=== PATIENT | female | born 1935 | race Caucasian/White ===

== ENCOUNTER 2016-11-22 12:18 | Inpatient (IN) | payer OTHER ==
[~2016-11-22] VITALS: Ht 154.9 cm; Wt 70.2 kg
[~2016-11-22 12:18] MED LIST: ASPI81CH43; METF-370
[2016-11-22] MEDS ORDERED: SODIUM CHLORIDE 0.9% 1,000 ML IVB ONE (12:53)
[2016-11-22 13:27] LABS: Basophils # (auto) 0 uL; Basophils % (auto) 0.3 % (0.0-2.0); CONDITION Y; Eosinophils # (auto) 0.4 uL; Eosinophils % (auto) 5.9 % (0.0-7.0); Hemoglobin 11.8 g/dL (12.2-16.2); Lymphocytes # (auto) 1.8 uL; Lymphocytes % (auto) 23.6 % (10.0-50.0); Mean Corpuscular Hemoglobin 29.6 pg (28.0-32.0); Mean Corpuscular Hgb Conc. 32.9 g/dL (32.0-36.0); Mean Corpuscular Volume 90.2 fL (80.0-100.0); Mean Platelet Volume 7.9 fL (7.4-10.4); Monocytes # (auto) 0.5 uL; Monocytes % (auto) 6.4 % (0.0-12.0); Neutrophils # (auto) 4.8 uL; Neutrophils % (auto) 63.8 % (37.0-80.0); Platelet Count (auto) 317 10^3/uL (140-450); Red Cell Distribution Width 15.1 % (11.6-16.0); White Blood Cell 7.5 10^3/uL (4.4-10.8)
[2016-11-22 13:51] LABS: Albumin 3.9 g/dL (3.4-5.0); Anion Gap 11 (5-15); Aspartate Aminotransferase 19 U/L (15-37); BUN/Creatinine Ratio 31.6; Blood Urea Nitrogen 43 mg/dL (7-18); Carbon Dioxide 18 mmol/L (21-32); Chloride 111 mmol/L (98-107); GFR African American 48 mL/min; GFR Non-African American 39 mL/min; Glucose 140 mg/dL (74-106); Potassium 4.9 mmol/L (3.5-5.1); Sodium 140 mmol/L (136-145)
[2016-11-22 13:55] LABS: Alkaline Phosphatase 99 U/L (45-117); Bilirubin, Total 0.3 mg/dL (0.2-1.0); Total Protein 7.7 g/dL (6.4-8.2)
[2016-11-22 14:00] LABS: Magnesium 2.4 mg/dL (1.6-2.6)
[2016-11-22 14:23] LABS: INR 1.02 (0.9-1.15); Partial Thromboplastin Time 26.5 sec (22.64-33.71); Prothrombin Time 11.1 sec (9.37-12.3)
[2016-11-22] MEDS ORDERED: ENOXAPARIN SOD 80 MG/0.8ML SYRINGE SC ONE (14:45)
[2016-11-22] MEDS ORDERED: TRAZ100T2 PO (16:01)
[2016-11-22] MEDS ORDERED: GABA-494 PO (16:01)
[2016-11-22] MEDS ORDERED: SIMV10TA84 PO (16:01)
[2016-11-22] MEDS ORDERED: LISI-646 PO (16:01)
[2016-11-22] MEDS ORDERED: MONT10TA34 PO (16:05)
[2016-11-22] MEDS ORDERED: MIRT15TA3 PO (16:05)
[2016-11-22] MEDS ORDERED: LEVOFLOXACIN 250MG 50 ML IV ONE (16:15)
[2016-11-22] MEDS ORDERED: ONDANSETRON HCL 4 MG/2 ML VIAL IV PRN (16:15)
[2016-11-22] MEDS ORDERED: ACETAMINOPHEN 325 MG TAB PO PRN (16:15)
[2016-11-22] MEDS ORDERED: DEXTROSE (50%) 50ML SYRG IV PRN (16:15)
[2016-11-22] MEDS ORDERED: DOCUSATE SOD 100 MG CAP PO PRN (16:15)
[2016-11-22] MEDS ORDERED: NITROGLYCERIN 0.4 MG SL TAB SL PRN (16:15)
[2016-11-22] MEDS ORDERED: ACETAMINOPHEN/CODEINE#3 (300/30mg) TAB PO PRN (16:15)
[2016-11-22] MEDS ORDERED: TEMAZEPAM 15 MG CAP PO PRN (16:15)
[2016-11-22] MEDS ORDERED: MORPHINE SULF INJ 2 MG/ML SYRINGE 1ML IV PRN ×2 (16:15)
[2016-11-22] MEDS ORDERED: GABAPENTIN 100 MG CAP PO ONE (16:30)
[2016-11-22] MEDS ORDERED: MULTIPLE VITAMIN TAB PO ONE (16:30)
[2016-11-22] MEDS ORDERED: ASPirin-EC 81 mg tab PO ONE (16:30)
[2016-11-22] MEDS ORDERED: MONTELUKAST SODIUM 10 MG TAB PO ONE (16:30)
[2016-11-22] MEDS ORDERED: LISINOPRIL 20 MG TAB PO ONE (16:30)
[2016-11-22] MEDS ORDERED: FAMOTIDINE 20 MG TAB PO ONE (16:30)
[2016-11-22] MEDS: InsuLIN REG 1unit/0.01ml Soln (100units/ml) SC SCH ×2 (17:00→22:00)
[2016-11-22] MEDS: ACCU-CHEK COMFORT CURVE STRIP VI SCH ×2 (17:03→22:58)
[2016-11-22 17:19] LABS: Temperature: 24.8 C (20.0-25.0)
[2016-11-22] MEDS: ALBUTEROL SULF 2.5 MG/0.5ML(0.5%) NEB SOLN NEB SCH (18:00)
[2016-11-22] MEDS: IPRATROPIUM BROM 0.5 MG/2.5ML INH SOL NEB SCH (18:00)
[2016-11-22] MEDS: traZODone HCL 50 MG TAB PO SCH (18:39)
[2016-11-22] MEDS: ISOSORBIDE DINITRATE 10 MG TAB PO SCH (18:39)
[2016-11-22 18:58] VITALS: BP 135/44
[2016-11-22 19:33] LABS: Urine Bilirubin Negative (Negative); Urine Blood Negative /uL (Negative); Urine Color Yellow (Yellow); Urine Glucose Normal (Normal); Urine Ketone Negative (Negative); Urine Nitrite Negative (Negative); Urine RBC <1 /hpf (0 - 4); Urine Urobilinogen Normal (Negative)
[2016-11-22] MEDS ORDERED: PATIENTS OWN MEDICATION IN SCH ×2 (22:00)
[2016-11-22] MEDS ORDERED: FAMOTIDINE 20 MG TAB PO SCH (22:00)
[2016-11-22] MEDS ORDERED: ADVAIR IN SCH (22:00)
[2016-11-22] MEDS: SODIUM CHLOR 0.9% PF (SALINE LOCK) 10ML VIAL IV SCH (22:56)
[2016-11-22] MEDS: ATORVASTATIN 20 MG TAB PO SCH (22:57)
[2016-11-22] MEDS: GABAPENTIN 100 MG CAP PO SCH (22:57)
[2016-11-22] MEDS: MIRTAZAPINE 30 MG TAB PO SCH (22:57)
[2016-11-22 23:17] VITALS: BP 147/64
[2016-11-23] VITALS (7 sets, daily range): BP systolic 107–153; BP diastolic 46–84
[2016-11-23] MEDS: IPRATROPIUM BROM 0.5 MG/2.5ML INH SOL NEB SCH ×4 (00:30→19:19)
[2016-11-23] MEDS: ALBUTEROL SULF 2.5 MG/0.5ML(0.5%) NEB SOLN NEB SCH ×4 (00:30→19:20)
[2016-11-23] MEDS: ISOSORBIDE DINITRATE 10 MG TAB PO SCH ×3 (05:37→18:49)
[2016-11-23] MEDS: SODIUM CHLOR 0.9% PF (SALINE LOCK) 10ML VIAL IV SCH ×3 (05:37→22:30)
[2016-11-23] MEDS: InsuLIN REG 1unit/0.01ml Soln (100units/ml) SC SCH ×4 (05:38→22:31)
[2016-11-23] MEDS: ACCU-CHEK COMFORT CURVE STRIP VI SCH ×4 (05:40→22:32)
[2016-11-23 06:41] LABS: Basophils # (auto) 0 uL; Basophils % (auto) 0.5 % (0.0-2.0); CONDITION Y; Eosinophils # (auto) 0.5 uL; Eosinophils % (auto) 7.7 % (0.0-7.0); Hematocrit 33.5 % (36.0-46.0); Hemoglobin 10.9 g/dL (12.2-16.2); Lymphocytes # (auto) 2.4 uL; Lymphocytes % (auto) 33.2 % (10.0-50.0); Mean Corpuscular Hemoglobin 29.8 pg (28.0-32.0); Mean Corpuscular Hgb Conc. 32.7 g/dL (32.0-36.0); Mean Corpuscular Volume 91.2 fL (80.0-100.0); Mean Platelet Volume 7.7 fL (7.4-10.4); Monocytes # (auto) 0.5 uL; Monocytes % (auto) 7.3 % (0.0-12.0); Neutrophils # (auto) 3.6 uL; Neutrophils % (auto) 51.3 % (37.0-80.0); Platelet Count (auto) 266 10^3/uL (140-450); Red Cell Distribution Width 14.7 % (11.6-16.0); White Blood Cell 7.1 10^3/uL (4.4-10.8)
[2016-11-23 07:06] LABS: Albumin 3.3 g/dL (3.4-5.0); Calcium 8.6 mg/dL (8.5-10.1); Potassium 5.1 mmol/L (3.5-5.1)
[2016-11-23 07:10] LABS: Bilirubin, Total 0.3 mg/dL (0.2-1.0); Total Protein 6.7 g/dL (6.4-8.2)
[2016-11-23] MEDS: traZODone HCL 50 MG TAB PO SCH ×2 (08:19→18:47)
[2016-11-23] MEDS: FAMOTIDINE 20 MG TAB PO SCH (10:41)
[2016-11-23] MEDS: MULTIPLE VITAMIN TAB PO SCH (10:41)
[2016-11-23] MEDS: GABAPENTIN 100 MG CAP PO SCH ×2 (10:41→22:31)
[2016-11-23] MEDS: ASPirin-EC 81 mg tab PO SCH (10:42)
[2016-11-23] MEDS: MONTELUKAST SODIUM 10 MG TAB PO SCH (10:42)
[2016-11-23] MEDS: LISINOPRIL 20 MG TAB PO SCH (10:43)
[2016-11-23] MEDS: LEVOFLOXACIN 250MG 50 ML IV SCH (10:43)
[2016-11-23] MEDS: BUDESONIDE (INHALATION) 0.5 MG/2 ML NEB NEB SCH (19:20)
[2016-11-23] MEDS: HYDROcodone-ACET 5/325MG TAB PO PRN (20:12)
[2016-11-23] MEDS: ATORVASTATIN 20 MG TAB PO SCH (22:31)
[2016-11-23] MEDS: MIRTAZAPINE 30 MG TAB PO SCH (22:31)
[2016-11-24 05:18] VITALS: BP 123/61
[2016-11-24] MEDS: ALBUTEROL SULF 2.5 MG/0.5ML(0.5%) NEB SOLN NEB SCH ×4 (06:37→18:50)
[2016-11-24] MEDS: IPRATROPIUM BROM 0.5 MG/2.5ML INH SOL NEB SCH ×4 (06:37→18:51)
[2016-11-24] MEDS: BUDESONIDE (INHALATION) 0.5 MG/2 ML NEB NEB SCH ×2 (06:37→18:51)
[2016-11-24] MEDS: SODIUM CHLOR 0.9% PF (SALINE LOCK) 10ML VIAL IV SCH ×3 (06:45→21:54)
[2016-11-24] MEDS: InsuLIN REG 1unit/0.01ml Soln (100units/ml) SC SCH ×4 (06:46→21:55)
[2016-11-24] MEDS: ISOSORBIDE DINITRATE 10 MG TAB PO SCH ×3 (06:46→18:00)
[2016-11-24] MEDS: ACCU-CHEK COMFORT CURVE STRIP VI SCH ×4 (06:47→21:55)
[2016-11-24 07:02] LABS: Basophils # (auto) 0 uL; Basophils % (auto) 0.5 % (0.0-2.0); CONDITION Y; Eosinophils # (auto) 0.6 uL; Eosinophils % (auto) 7.2 % (0.0-7.0); Hematocrit 35.4 % (36.0-46.0); Hemoglobin 11.5 g/dL (12.2-16.2); Lymphocytes # (auto) 2.2 uL; Lymphocytes % (auto) 27.9 % (10.0-50.0); Mean Corpuscular Hemoglobin 29.5 pg (28.0-32.0); Mean Corpuscular Hgb Conc. 32.5 g/dL (32.0-36.0); Mean Corpuscular Volume 90.7 fL (80.0-100.0); Mean Platelet Volume 7.7 fL (7.4-10.4); Monocytes # (auto) 0.6 uL; Monocytes % (auto) 7.9 % (0.0-12.0); Neutrophils # (auto) 4.5 uL; Neutrophils % (auto) 56.5 % (37.0-80.0); Platelet Count (auto) 293 10^3/uL (140-450); Red Cell Distribution Width 14.7 % (11.6-16.0)
[2016-11-24 07:23] LABS: BUN/Creatinine Ratio 30.6; Calcium 8.9 mg/dL (8.5-10.1); Magnesium 2.2 mg/dL (1.6-2.6); Potassium 5.1 mmol/L (3.5-5.1)
[2016-11-24 08:56] VITALS: BP 92/45
[2016-11-24] MEDS: LEVOFLOXACIN 250MG 50 ML IV SCH (09:32)
[2016-11-24] MEDS: traZODone HCL 50 MG TAB PO SCH ×2 (09:32→20:44)
[2016-11-24] MEDS: GABAPENTIN 100 MG CAP PO SCH ×2 (09:33→21:54)
[2016-11-24] MEDS: ASPirin-EC 81 mg tab PO SCH (09:33)
[2016-11-24] MEDS: MULTIPLE VITAMIN TAB PO SCH (09:33)
[2016-11-24] MEDS: FAMOTIDINE 20 MG TAB PO SCH (09:34)
[2016-11-24] MEDS: MONTELUKAST SODIUM 10 MG TAB PO SCH (09:34)
[2016-11-24] MEDS: LISINOPRIL 20 MG TAB PO SCH (09:35)
[2016-11-24] MEDS ORDERED: VANCOMYCIN PER PHARMACY 0 MG IV SCH (10:45)
[2016-11-24] MEDS: SODIUM CHLORIDE 0.9% 1,000 ML IV SCH (11:00)
[2016-11-24 13:00] VITALS: BP 114/57
[2016-11-24] MEDS: VANCOMYCIN 750 MG in D5W 5% 250 ML IV SCH (13:30)
[2016-11-24 17:00] VITALS: BP 110/48
[2016-11-24] MEDS: HYDROcodone-ACET 5/325MG TAB PO PRN (20:44)
[2016-11-24] MEDS: MIRTAZAPINE 30 MG TAB PO SCH (21:54)
[2016-11-24] MEDS: ATORVASTATIN 20 MG TAB PO SCH (21:54)
[2016-11-24 22:00] VITALS: BP 128/62
[2016-11-24] MEDS ORDERED: TEMAZEPAM 15 MG CAP PO PRN (22:15)
[2016-11-25] MEDS: IPRATROPIUM BROM 0.5 MG/2.5ML INH SOL NEB SCH ×4 (05:46→18:50)
[2016-11-25] MEDS: BUDESONIDE (INHALATION) 0.5 MG/2 ML NEB NEB SCH ×2 (05:46→18:50)
[2016-11-25] MEDS: ALBUTEROL SULF 2.5 MG/0.5ML(0.5%) NEB SOLN NEB SCH ×4 (05:46→18:50)
[2016-11-25 05:47] VITALS: BP 109/65
[2016-11-25] MEDS: ISOSORBIDE DINITRATE 10 MG TAB PO SCH ×3 (06:00→18:10)
[2016-11-25] MEDS ORDERED: ACETTAB85 PO (06:05)
[2016-11-25 06:24] LABS: Basophils # (auto) 0 uL; Basophils % (auto) 0.4 % (0.0-2.0); CONDITION Y; Eosinophils # (auto) 0.7 uL; Eosinophils % (auto) 8.9 % (0.0-7.0); Hematocrit 34.5 % (36.0-46.0); Hemoglobin 11.3 g/dL (12.2-16.2); Lymphocytes # (auto) 2.2 uL; Lymphocytes % (auto) 29.3 % (10.0-50.0); Mean Corpuscular Hemoglobin 29.5 pg (28.0-32.0); Mean Corpuscular Hgb Conc. 32.7 g/dL (32.0-36.0); Mean Corpuscular Volume 90.3 fL (80.0-100.0); Mean Platelet Volume 7.6 fL (7.4-10.4); Monocytes # (auto) 0.6 uL; Monocytes % (auto) 7.6 % (0.0-12.0); Neutrophils % (auto) 53.8 % (37.0-80.0); Platelet Count (auto) 292 10^3/uL (140-450); Red Cell Distribution Width 14.6 % (11.6-16.0); White Blood Cell 7.4 10^3/uL (4.4-10.8)
[2016-11-25] MEDS: SODIUM CHLORIDE 0.9% 1,000 ML IV SCH ×2 (06:35→22:07)
[2016-11-25] MEDS: SODIUM CHLOR 0.9% PF (SALINE LOCK) 10ML VIAL IV SCH ×3 (06:35→22:07)
[2016-11-25] MEDS: InsuLIN REG 1unit/0.01ml Soln (100units/ml) SC SCH ×4 (06:36→22:00)
[2016-11-25] MEDS: ACCU-CHEK COMFORT CURVE STRIP VI SCH ×4 (06:37→22:15)
[2016-11-25 06:56] LABS: Albumin 3.2 g/dL (3.4-5.0); Calcium 8.6 mg/dL (8.5-10.1); Magnesium 2.1 mg/dL (1.6-2.6); Potassium 5.1 mmol/L (3.5-5.1)
[2016-11-25 06:58] LABS: BUN/Creatinine Ratio 27.3
[2016-11-25 07:01] LABS: Bilirubin, Total 0.2 mg/dL (0.2-1.0); Total Protein 6.6 g/dL (6.4-8.2)
[2016-11-25] MEDS: traZODone HCL 50 MG TAB PO SCH ×2 (08:37→18:00)
[2016-11-25 08:45] VITALS: BP 115/62
[2016-11-25] MEDS: LEVOFLOXACIN 250MG 50 ML IV SCH (10:15)
[2016-11-25] MEDS: GABAPENTIN 100 MG CAP PO SCH ×2 (10:16→22:07)
[2016-11-25] MEDS: MULTIPLE VITAMIN TAB PO SCH (10:16)
[2016-11-25] MEDS: ASPirin-EC 81 mg tab PO SCH (10:16)
[2016-11-25] MEDS: MONTELUKAST SODIUM 10 MG TAB PO SCH (10:16)
[2016-11-25] MEDS: FAMOTIDINE 20 MG TAB PO SCH (10:17)
[2016-11-25] MEDS: VANCOMYCIN 750 MG in D5W 5% 250 ML IV SCH (12:00)
[2016-11-25 12:19] VITALS: BP 122/57
[2016-11-25 17:04] VITALS: BP 125/59
[2016-11-25 20:32] LABS: BUN/Creatinine Ratio 26.9; Potassium 4.9 mmol/L (3.5-5.1)
[2016-11-25 22:00] VITALS: BP 132/59
[2016-11-25] MEDS: ATORVASTATIN 20 MG TAB PO SCH (22:07)
[2016-11-25] MEDS: MIRTAZAPINE 30 MG TAB PO SCH (22:07)
[2016-11-25] MEDS: HYDROcodone-ACET 5/325MG TAB PO PRN (22:08)
[2016-11-26 05:45] VITALS: BP 128/68
[2016-11-26] MEDS: IPRATROPIUM BROM 0.5 MG/2.5ML INH SOL NEB SCH ×3 (06:23→12:41)
[2016-11-26] MEDS: BUDESONIDE (INHALATION) 0.5 MG/2 ML NEB NEB SCH (06:23)
[2016-11-26] MEDS: ALBUTEROL SULF 2.5 MG/0.5ML(0.5%) NEB SOLN NEB SCH ×3 (06:23→12:41)
[2016-11-26 06:29] LABS: Potassium 4.7 mmol/L (3.5-5.1)
[2016-11-26 06:39] LABS: Albumin 3.4 g/dL (3.4-5.0); BUN/Creatinine Ratio 28.9; Calcium 8.9 mg/dL (8.5-10.1); Magnesium 2.2 mg/dL (1.6-2.6)
[2016-11-26 06:40] LABS: Bilirubin, Total 0.3 mg/dL (0.2-1.0); Total Protein 6.9 g/dL (6.4-8.2)
[2016-11-26] MEDS: InsuLIN REG 1unit/0.01ml Soln (100units/ml) SC SCH ×2 (07:00→11:30)
[2016-11-26] MEDS: SODIUM CHLOR 0.9% PF (SALINE LOCK) 10ML VIAL IV SCH (07:06)
[2016-11-26] MEDS: ISOSORBIDE DINITRATE 10 MG TAB PO SCH ×2 (07:07→12:00)
[2016-11-26] MEDS: ACCU-CHEK COMFORT CURVE STRIP VI SCH ×2 (07:07→11:50)
[2016-11-26 07:59] VITALS: BP 110/50
[2016-11-26] MEDS: traZODone HCL 50 MG TAB PO SCH (08:00)
[2016-11-26] MEDS ORDERED: LEVOFLOXACIN 250 MG TAB PO SCH (10:00)
[2016-11-26] MEDS: ASPirin-EC 81 mg tab PO SCH (10:42)
[2016-11-26] MEDS: MULTIPLE VITAMIN TAB PO SCH (10:42)
[2016-11-26] MEDS: GABAPENTIN 100 MG CAP PO SCH (10:43)
[2016-11-26] MEDS: FAMOTIDINE 20 MG TAB PO SCH (10:43)
[2016-11-26] MEDS: MONTELUKAST SODIUM 10 MG TAB PO SCH (10:43)
[2016-11-26 11:50] VITALS: BP 114/56
[2016-11-26] MEDS: VANCOMYCIN 750 MG in D5W 5% 250 ML IV SCH (11:50)
[2016-11-26 12:18] VITALS: BP 114/56
== END 2016-11-26 13:00 | disposition home health service (06) | DRG 312 ==
LOC: ER 12:18 → EDBD 12:18 → DOU IN ICU 12:19 → TELE-WESTW 17:27 → TELE 18:32 → TELE-CENTR 22:01
PROVIDERS: ADMIT Internal Medicine; ATTEND Family Medicine
DX: R55 Syncope and collapse (principal); E11.21 Type 2 diabetes mellitus with diabetic nephropathy; R78.81 Bacteremia; J44.9 Chronic obstructive pulmonary disease, unspecified; B95.7 Other staphylococcus as the cause of diseases classified elsewhere; W18.39XA Other fall on same level, initial encounter; E11.22 Type 2 diabetes mellitus with diabetic chronic kidney disease; N18.3 Chronic kidney disease, stage 3 (moderate); I12.9 Hypertensive chronic kidney disease with stage 1 through stage 4 chronic kidney disease, or unspecified chronic kidney disease; I70.0 Atherosclerosis of aorta; I49.9 Cardiac arrhythmia, unspecified; R79.1 Abnormal coagulation profile; J32.9 Chronic sinusitis, unspecified; D63.8 Anemia in other chronic diseases classified elsewhere; Z82.49 Family history of ischemic heart disease and other diseases of the circulatory system; Z83.3 Family history of diabetes mellitus; Z90.89 Acquired absence of other organs; Z90.711 Acquired absence of uterus with remaining cervical stump; Z88.6 Allergy status to analgesic agent; Z88.0 Allergy status to penicillin; Z88.2 Allergy status to sulfonamides; Z87.891 Personal history of nicotine dependence; Y93.89 Activity, other specified; Y92.511 Restaurant or cafe as the place of occurrence of the external cause; Y99.8 Other external cause status
CPT/HCPCS: 36415; 70450; 71020; 78582; 80048; 80053; 80307; 80320; 81001; 82607; 82962; 83036; 83605; 83735; 83880; 84443; 84484; 85025; 85379; 85610; 85730; 87040; 87077; 87086; 87186; 93005; 93306; 93970; 94640; 96361; 96372; 96374; 99291; J1815; J7060

== ENCOUNTER 2016-11-30 20:14 | Inpatient (IN) | payer OTHER ==
[~2016-11-30] VITALS: Ht 154.9 cm; Wt 72.0 kg
[~2016-11-30 20:14] MED LIST changes: +ACETTAB85 PO; +GABA-494 PO; +LISI-646 PO; -METF-370; +MIRT15TA3 PO; +MONT10TA34 PO; +SIMV10TA84 PO; +TRAZ100T2 PO
[2016-11-30 21:20] LABS: Basophils # (auto) 0.1 uL; Basophils % (auto) 0.6 % (0.0-2.0); Eosinophils # (auto) 0.5 uL; Eosinophils % (auto) 5.3 % (0.0-7.0); Hematocrit 37.1 % (36.0-46.0); Hemoglobin 12.1 g/dL (12.2-16.2); Lymphocytes # (auto) 1.8 uL; Lymphocytes % (auto) 18.6 % (10.0-50.0); Mean Corpuscular Hemoglobin 29.6 pg (28.0-32.0); Mean Corpuscular Hgb Conc. 32.7 g/dL (32.0-36.0); Mean Corpuscular Volume 90.7 fL (80.0-100.0); Mean Platelet Volume 7.5 fL (7.4-10.4); Monocytes # (auto) 0.7 uL; Neutrophils # (auto) 6.8 uL; Neutrophils % (auto) 68.5 % (37.0-80.0); Platelet Count (auto) 308 10^3/uL (140-450); Red Cell Distribution Width 14.3 % (11.6-16.0); White Blood Cell 9.9 10^3/uL (4.4-10.8)
[2016-11-30 21:38] LABS: Albumin 3.9 g/dL (3.4-5.0); Alkaline Phosphatase 105 U/L (45-117); Anion Gap 8 (5-15); Aspartate Aminotransferase 13 U/L (15-37); BUN/Creatinine Ratio 21.8; Bilirubin, Total 0.2 mg/dL (0.2-1.0); Blood Urea Nitrogen 69 mg/dL (7-18); Calcium 9.1 mg/dL (8.5-10.1); Carbon Dioxide 22 mmol/L (21-32); Chloride 103 mmol/L (98-107); GFR African American 18 mL/min; GFR Non-African American 15 mL/min; Glucose 98 mg/dL (74-106); Magnesium 2.5 mg/dL (1.6-2.6); Sodium 133 mmol/L (136-145); Total Protein 7.8 g/dL (6.4-8.2)
[2016-11-30 21:43] LABS: Potassium 5.9 mmol/L (3.5-5.1)
[2016-11-30] MEDS ORDERED: DEXTROSE (50%) 50ML SYRG IV ONE (23:30)
[2016-11-30] MEDS ORDERED: SODIUM POLYSTYRENE SULF 15GM/60ML SUSP PO ONE (23:30)
[2016-11-30] MEDS ORDERED: CALCIUM GLUC 4.65meq/50ml D5AE 50 ML IV ONE (23:30)
[2016-11-30] MEDS ORDERED: SODIUM BICARBONATE 8.4% INJ 50ML SYRINGE IV ONE (23:30)
[2016-11-30] MEDS ORDERED: SODIUM CHLORIDE 0.9% 1,000 ML IV ONE ×2 (23:30)
[2016-11-30] MEDS ORDERED: InsuLIN REG 1unit/0.01ml Soln (100units/ml) IV ONE (23:30)
[2016-11-30 23:38] LABS: Urine RBC None Seen /hpf (0 - 4)
[2016-11-30 23:48] LABS: Urine Bilirubin Negative (Negative); Urine Blood Negative /uL (Negative); Urine Color Yellow (Yellow); Urine Glucose Normal (Normal); Urine Hyaline Cast FEW /lpf (0 - 2); Urine Ketone Negative (Negative); Urine Mucus FEW (None Seen); Urine Nitrite Negative (Negative); Urine Urobilinogen Normal (Negative)
[2016-12-01] MEDS ORDERED: NITROGLYCERIN 0.4 MG SL TAB SL PRN (04:30)
[2016-12-01] MEDS ORDERED: DEXTROSE (50%) 50ML SYRG IV PRN (04:30)
[2016-12-01] MEDS ORDERED: ONDANSETRON HCL 4 MG/2 ML VIAL IV PRN (04:30)
[2016-12-01] MEDS ORDERED: ACETAMINOPHEN 500 MG TAB PO PRN (04:30)
[2016-12-01] MEDS ORDERED: MORPHINE SULF INJ 2 MG/ML SYRINGE 1ML IV PRN ×2 (04:30)
[2016-12-01 04:48] LABS: Basophils # (auto) 0.1 uL; Basophils % (auto) 0.7 % (0.0-2.0); Eosinophils # (auto) 0.6 uL; Eosinophils % (auto) 6.6 % (0.0-7.0); Hematocrit 32.9 % (36.0-46.0); Hemoglobin 10.9 g/dL (12.2-16.2); Lymphocytes % (auto) 23.9 % (10.0-50.0); Mean Corpuscular Hemoglobin 29.9 pg (28.0-32.0); Mean Corpuscular Hgb Conc. 33.1 g/dL (32.0-36.0); Mean Corpuscular Volume 90.4 fL (80.0-100.0); Mean Platelet Volume 7.2 fL (7.4-10.4); Monocytes # (auto) 0.6 uL; Monocytes % (auto) 7.7 % (0.0-12.0); Neutrophils # (auto) 5.1 uL; Neutrophils % (auto) 61.1 % (37.0-80.0); Platelet Count (auto) 250 10^3/uL (140-450); Red Cell Distribution Width 14.4 % (11.6-16.0); White Blood Cell 8.3 10^3/uL (4.4-10.8)
[2016-12-01 05:00] LABS: BUN/Creatinine Ratio 24.2; Calcium 8.5 mg/dL (8.5-10.1)
[2016-12-01] MEDS: ACCU-CHEK COMFORT CURVE STRIP VI SCH ×4 (07:00→22:10)
[2016-12-01] MEDS: ASPirin-EC 81 mg tab PO SCH (10:23)
[2016-12-01] MEDS ORDERED: SODIUM CHLORIDE 0.9% 1,000 ML IV SCH (11:30)
[2016-12-01] MEDS: SODIUM CHLORIDE 0.9% 1,000 ML IV SCH (17:40)
[2016-12-01 18:35] VITALS: BP 141/55
[2016-12-01 18:56] LABS: Urine Bilirubin Negative (Negative); Urine Blood TRACE /uL (Negative); Urine Color Yellow (Yellow); Urine Glucose Normal (Normal); Urine Ketone Negative (Negative); Urine Nitrite Negative (Negative); Urine RBC 7 /hpf (0 - 4); Urine Squamous Epithelial Cell FEW /hpf (<5); Urine Urobilinogen Normal (Negative)
[2016-12-01] MEDS: HYDROcodone-ACET 5/325MG TAB PO PRN (21:51)
[2016-12-01 22:00] VITALS: BP 124/36
[2016-12-01] MEDS ORDERED: traZODone HCL 50 MG TAB PO SCH (22:00)
[2016-12-01] MEDS ORDERED: MONTELUKAST SODIUM 10 MG TAB PO SCH (22:00)
[2016-12-01] MEDS ORDERED: GABAPENTIN 100 MG CAP PO SCH (22:00)
[2016-12-01] MEDS ORDERED: ATORVASTATIN 20 MG TAB PO SCH (22:00)
[2016-12-02 05:00] VITALS: BP 114/40
[2016-12-02] MEDS: ACCU-CHEK COMFORT CURVE STRIP VI SCH ×2 (06:15→11:43)
[2016-12-02] MEDS: SODIUM CHLORIDE 0.9% 1,000 ML IV SCH ×2 (06:16→13:30)
[2016-12-02 06:23] LABS: Basophils # (auto) 0 uL; Basophils % (auto) 0.4 % (0.0-2.0); Eosinophils # (auto) 0.6 uL; Eosinophils % (auto) 7.3 % (0.0-7.0); Hematocrit 32.9 % (36.0-46.0); Hemoglobin 10.6 g/dL (12.2-16.2); Lymphocytes # (auto) 2.4 uL; Lymphocytes % (auto) 29.3 % (10.0-50.0); Mean Corpuscular Hemoglobin 29.2 pg (28.0-32.0); Mean Corpuscular Hgb Conc. 32.2 g/dL (32.0-36.0); Mean Corpuscular Volume 90.8 fL (80.0-100.0); Mean Platelet Volume 7.5 fL (7.4-10.4); Monocytes # (auto) 0.7 uL; Monocytes % (auto) 8.7 % (0.0-12.0); Neutrophils # (auto) 4.4 uL; Neutrophils % (auto) 54.3 % (37.0-80.0); Platelet Count (auto) 213 10^3/uL (140-450); Red Cell Distribution Width 14.1 % (11.6-16.0); White Blood Cell 8.1 10^3/uL (4.4-10.8)
[2016-12-02 06:35] LABS: BUN/Creatinine Ratio 29.2; Calcium 7.8 mg/dL (8.5-10.1); Magnesium 2.4 mg/dL (1.6-2.6); Potassium 4.4 mmol/L (3.5-5.1)
[2016-12-02 09:00] VITALS: BP 114/67
[2016-12-02] MEDS: ASPirin-EC 81 mg tab PO SCH (09:02)
[2016-12-02 12:47] VITALS: BP 153/78
[2016-12-02] MEDS: HYDROcodone-ACET 5/325MG TAB PO PRN (14:03)
== END 2016-12-02 15:45 | disposition home or self-care (01) | DRG 684 ==
LOC: ER 20:14 → TELE 20:15 → TELE-WESTW 12-01 21:17
PROVIDERS: ADMIT Nurse Practitioner Family; ATTEND Nurse Practitioner Family
DX: N17.9 Acute kidney failure, unspecified (principal); I95.9 Hypotension, unspecified; E11.649 Type 2 diabetes mellitus with hypoglycemia without coma; E87.5 Hyperkalemia; E11.22 Type 2 diabetes mellitus with diabetic chronic kidney disease; E86.0 Dehydration; D64.9 Anemia, unspecified; J45.909 Unspecified asthma, uncomplicated; E78.5 Hyperlipidemia, unspecified; I12.9 Hypertensive chronic kidney disease with stage 1 through stage 4 chronic kidney disease, or unspecified chronic kidney disease; N18.9 Chronic kidney disease, unspecified; Z83.3 Family history of diabetes mellitus; Z82.49 Family history of ischemic heart disease and other diseases of the circulatory system; Z90.710 Acquired absence of both cervix and uterus; Z79.82 Long term (current) use of aspirin; Z79.899 Other long term (current) drug therapy; Z79.84 Long term (current) use of oral hypoglycemic drugs; Z88.6 Allergy status to analgesic agent; Z88.0 Allergy status to penicillin; Z88.2 Allergy status to sulfonamides; Z90.89 Acquired absence of other organs
CPT/HCPCS: 36415; 51702; 71010; 73630; 76775; 80048; 80053; 81001; 82570; 82962; 83036; 83735; 84132; 84156; 84300; 84443; 84484; 85025; 87081; 93005; 96361; 96374; 96375; J0610; J1815

== ENCOUNTER 2022-02-12 13:17 | Inpatient (IN) | payer OTHER ==
[~2022-02-12] VITALS: Ht 154.9 cm; Wt 67.7 kg
[~2022-02-12 13:17] MED LIST changes: +ACET-1603 PO; -ACETTAB85 PO; -GABA-494 PO; +GABA100C9 PO; -LISI-646 PO; +LISI20TA28 PO; -MIRT15TA3 PO; +MIRT1TAB38 PO; +MONT-8 PO; -MONT10TA34 PO; -TRAZ100T2 PO; +TRAZ100T3 PO
[2022-02-12 14:02] LABS: Basophils # (auto) 0 10 ^3/uL (0-0.2); Eosinophils # (auto) 0.6 10 ^3/uL (0-0.8); Hemoglobin 11.7 g/dL (12.2-16.2); Lymphocytes # (auto) 1.6 10 ^3/uL (0.4-5.4); Monocytes # (auto) 0.5 10 ^3/uL (0-1.3); White Blood Cell 8.9 10^3/uL (4.4-10.8)
[2022-02-12 14:06] LABS: Basophils % (auto) 0.5 % (0.0-2.0); Eosinophils % (auto) 6.8 % (0.0-7.0); Hematocrit 36.5 % (36.0-46.0); Lymphocytes % (auto) 18.2 % (10.0-50.0); Mean Corpuscular Hemoglobin 28.3 pg (28.0-32.0); Mean Corpuscular Hgb Conc. 32.1 g/dL (32.0-36.0); Mean Corpuscular Volume 88.1 fL (80.0-100.0); Monocytes % (auto) 5.3 % (0.0-12.0); Neutrophils # (auto) 6.2 10 ^3/uL (1.6-8.6); Neutrophils % (auto) 69.2 % (37.0-80.0); Red Blood Cells 4.14 10^6/uL (4.0-5.20); Red Cell Distribution Width 15.6 % (11.8-14.3)
[2022-02-12 14:07] LABS: Albumin 3.5 g/dL (3.4-5.0); Calcium 8.4 mg/dL (8.5-10.1); Potassium 4.7 mmol/L (3.5-5.1)
[2022-02-12 14:10] LABS: BUN/Creatinine Ratio 21.5; Bilirubin, Total 0.4 mg/dL (0.2-1.0); Total Protein 6.7 g/dL (6.4-8.2)
[2022-02-12] MEDS ORDERED: ACETAMINOPHEN 325 MG TAB PO PRN (15:30)
[2022-02-12 15:36] LABS: INR 1.06 (0.9-1.15)
[2022-02-12] MEDS ORDERED: PANTOPRAZOLE 40 MG/10 ML VIAL INJ IV ONE (16:30)
[2022-02-12] MEDS: HYDROcodone-ACET 5/325MG TAB PO PRN ×2 (16:50→20:39)
[2022-02-12] MEDS: SODIUM CHLORIDE 0.9% 1,000 ML IV SCH (17:25)
[2022-02-12 18:50] LABS: Urine Bacteria FEW /hpf (None Seen); Urine Blood Negative /uL (Negative); Urine Specific Gravity 1.014 (1.001-1.035); Urine WBC 36 /hpf (0 - 5)
[2022-02-12] MEDS: ALBUTEROL SULF 2.5 MG/0.5ML(0.5%) NEB SOLN NEB PRN (20:01)
[2022-02-12 20:11] VITALS: BP 138/53
[2022-02-12] MEDS: PRAVASTATIN SODIUM 20 MG TAB PO SCH (22:11)
[2022-02-12] MEDS: GABAPENTIN 100 MG CAP PO SCH (22:11)
[2022-02-13 00:08] VITALS: BP 151/58
[2022-02-13] MEDS: HYDROcodone-ACET 5/325MG TAB PO PRN ×6 (00:55→22:43)
[2022-02-13 05:00] VITALS: BP 155/57
[2022-02-13 05:49] LABS: Basophils # (auto) 0 10 ^3/uL (0-0.2); Basophils % (auto) 0.5 % (0.0-2.0); Eosinophils # (auto) 0.5 10 ^3/uL (0-0.8); Eosinophils % (auto) 5.2 % (0.0-7.0); Hematocrit 37.1 % (36.0-46.0); Hemoglobin 11.6 g/dL (12.2-16.2); Lymphocytes # (auto) 1.5 10 ^3/uL (0.4-5.4); Lymphocytes % (auto) 14.7 % (10.0-50.0); Mean Corpuscular Hemoglobin 27.9 pg (28.0-32.0); Mean Corpuscular Hgb Conc. 31.3 g/dL (32.0-36.0); Mean Corpuscular Volume 89.2 fL (80.0-100.0); Monocytes # (auto) 0.6 10 ^3/uL (0-1.3); Monocytes % (auto) 5.9 % (0.0-12.0); Neutrophils # (auto) 7.6 10 ^3/uL (1.6-8.6); Neutrophils % (auto) 73.7 % (37.0-80.0); Red Blood Cells 4.16 10^6/uL (4.0-5.20); Red Cell Distribution Width 15.8 % (11.8-14.3); White Blood Cell 10.3 10^3/uL (4.4-10.8)
[2022-02-13 06:10] LABS: Albumin 3.3 g/dL (3.4-5.0); Calcium 8.4 mg/dL (8.5-10.1); Potassium 4.8 mmol/L (3.5-5.1)
[2022-02-13 06:11] LABS: BUN/Creatinine Ratio 21.1
[2022-02-13 06:15] LABS: Bilirubin, Total 0.5 mg/dL (0.2-1.0); Total Protein 6.3 g/dL (6.4-8.2)
[2022-02-13] MEDS: SODIUM CHLORIDE 0.9% 1,000 ML IV SCH (06:19)
[2022-02-13] MEDS: ALBUTEROL SULF 2.5 MG/0.5ML(0.5%) NEB SOLN NEB PRN ×3 (06:20→19:10)
[2022-02-13] MEDS ORDERED: LACTATED RINGER'S 1,000 ML IV SCH (08:30)
[2022-02-13 08:56] LABS: Cholesterol 107 mg/dL (< 200); Triglycerides 85 mg/dL (< 150)
[2022-02-13 08:59] LABS: HDL Cholesterol 64 mg/dL (40-59); LDL Cholesterol 47 mg/dL (< 100)
[2022-02-13 09:00] VITALS: BP 136/52
[2022-02-13 09:02] LABS: INR 1.13 (0.9-1.15)
[2022-02-13] MEDS: LISINOPRIL 20 MG TAB PO SCH (09:49)
[2022-02-13] MEDS: ENOXAPARIN SOD 30 MG/0.3 ML SYRINGE SC SCH (09:49)
[2022-02-13] MEDS: PANTOPRAZOLE 40 MG/10 ML VIAL INJ IV SCH (09:50)
[2022-02-13] MEDS ORDERED: methylPREDNISolone SOD SUCC 125 MG/2 ML VL IV ONE (11:30)
[2022-02-13] MEDS ORDERED: DEXTROSE (50%) 50ML SYRG IV PRN (11:30)
[2022-02-13] MEDS ORDERED: levoFLOXacin 500MG 100 ML IV ONE (11:45)
[2022-02-13] MEDS: InsuLIN REG 1unit/0.01ml Soln (100units/ml) SC SCH ×3 (12:58→23:01)
[2022-02-13 13:00] VITALS: BP 141/54
[2022-02-13] MEDS: ACCU-CHEK COMFORT CURVE STRIP VI SCH ×3 (13:00→22:44)
[2022-02-13] MEDS ORDERED: methylPREDNISolone SOD SUCC 125 MG/2 ML VL ONE (13:25)
[2022-02-13 17:00] VITALS: BP 180/70
[2022-02-13] MEDS ORDERED: DILT60TA PO (20:02)
[2022-02-13] MEDS ORDERED: ISOSPOW2 XX (20:04)
[2022-02-13] MEDS ORDERED: LOVA20TA4 PO (20:06)
[2022-02-13] MEDS ORDERED: HYDR-4296 PO (20:07)
[2022-02-13] MEDS ORDERED: MONT-8 PO (20:08)
[2022-02-13] MEDS ORDERED: ALLO100T PO (20:09)
[2022-02-13] MEDS ORDERED: GLIP10TA9 PO (20:13)
[2022-02-13] MEDS ORDERED: GLIP5TAB12 PO (20:16)
[2022-02-13] MEDS ORDERED: MULT-195 OR (20:18)
[2022-02-13] MEDS ORDERED: CYAN-17 PO (20:20)
[2022-02-13] MEDS ORDERED: ALBU0.084 NEB (20:21)
[2022-02-13] MEDS ORDERED: IPRA0.03 (20:22)
[2022-02-13] MEDS ORDERED: BUDE0.5S IN (20:24)
[2022-02-13] MEDS ORDERED: ALBUAER3 IN (20:25)
[2022-02-13 22:00] VITALS: BP 156/81
[2022-02-13] MEDS: methylPREDNISolone SOD SUCC 125 MG/2 ML VL IV SCH (22:40)
[2022-02-13] MEDS: PRAVASTATIN SODIUM 20 MG TAB PO SCH (22:41)
[2022-02-13] MEDS: GABAPENTIN 100 MG CAP PO SCH (22:41)
[2022-02-13] MEDS: hydrALAZINE HCL 20 MG/ML VL IV PRN (22:42)
[2022-02-14 05:00] VITALS: BP 164/73
[2022-02-14] MEDS: hydrALAZINE HCL 20 MG/ML VL IV PRN (05:45)
[2022-02-14] MEDS ORDERED: BUPIVACAINE W/ EPINEPH 0.25% INJ 50ML MDV ONE (07:03)
[2022-02-14] MEDS ORDERED: TRANEXAMIC ACID 10 ML ONE (07:03)
[2022-02-14 07:06] LABS: Calcium 9.1 mg/dL (8.5-10.1); Potassium 4.1 mmol/L (3.5-5.1)
[2022-02-14] MEDS ORDERED: VANCOMYCIN HCL 1000 MG VL ONE (07:08)
[2022-02-14] MEDS ORDERED: KETOROLAC TROMETH 30 MG/ML 1ML VIAL ONE (07:08)
[2022-02-14 07:10] LABS: BUN/Creatinine Ratio 22.8; Magnesium 2.3 mg/dL (1.6-2.6)
[2022-02-14] MEDS: ACCU-CHEK COMFORT CURVE STRIP VI SCH ×7 (07:11→21:47)
[2022-02-14] MEDS ORDERED: ceFAZolin 1GM/50ML 100 ML IV ONE ×2 (07:13→07:54)
[2022-02-14] MEDS: InsuLIN REG 1unit/0.01ml Soln (100units/ml) SC SCH ×4 (07:13→21:46)
[2022-02-14 07:17] LABS: Hematocrit 39.8 % (36.0-46.0); Hemoglobin 12.3 g/dL (12.2-16.2); Mean Corpuscular Hemoglobin 27.2 pg (28.0-32.0); Mean Corpuscular Volume 87.8 fL (80.0-100.0); Red Blood Cells 4.53 10^6/uL (4.0-5.20); Red Cell Distribution Width 16.1 % (11.8-14.3); White Blood Cell 10.2 10^3/uL (4.4-10.8)
[2022-02-14 07:18] LABS: Band Neutrophils % (manual) 0; Basophils % (manual) 0 (0.0-2.0); Blast Cells 0; Eosinophils % (manual) 0 (0-7); Metamyelocytes % 0; Myelocytes % 0; Promyelocytes % 0; Reactive Lymphocytes 0
[2022-02-14] MEDS ORDERED: CLINDAMYCIN 600MG IV 0 ML IV ONE (07:54)
[2022-02-14] MEDS ORDERED: PROPOFOL 10 MG/ML 20 ML IV ONE (08:23)
[2022-02-14] MEDS ORDERED: DexAMETHasone SOD PHOS 10MG/1ML VIAL INJ ONE (08:23)
[2022-02-14] MEDS ORDERED: LIDOCAINE 2% (LOCAL ANESTH.) PF 5ml SDV ONE (08:23)
[2022-02-14] MEDS ORDERED: GLYCOPYRROLATE 0.2 MG/ML 1ML VIAL ONE (08:23)
[2022-02-14] MEDS ORDERED: ONDANSETRON HCL 4 MG/2 ML VIAL ONE (08:23)
[2022-02-14] MEDS ORDERED: MORPHINE SULF PF 5 MG/10 ML VIAL ONE (08:30)
[2022-02-14 08:33] LABS: Lymphocytes % (manual) 4 (10.0-50.0); Monocytes % (manual) 1 (0-12)
[2022-02-14] MEDS ORDERED: SODIUM CHLORIDE LOCK 10 ML ONE (08:57)
[2022-02-14] MEDS: LACTATED RINGER'S 1,000 ML IV SCH ×4 (09:15→22:14)
[2022-02-14] MEDS: VANCOMYCIN 1GM/250ML 250 ML IV SCH (10:00)
[2022-02-14] MEDS: LISINOPRIL 20 MG TAB PO SCH (11:03)
[2022-02-14] MEDS: PANTOPRAZOLE 40 MG/10 ML VIAL INJ IV SCH (11:04)
[2022-02-14] MEDS: ENOXAPARIN SOD 30 MG/0.3 ML SYRINGE SC SCH (11:06)
[2022-02-14] MEDS: methylPREDNISolone SOD SUCC 125 MG/2 ML VL IV SCH ×2 (11:08→21:47)
[2022-02-14] MEDS: levoFLOXacin 250MG 50 ML IV SCH (11:10)
[2022-02-14] MEDS: amLODIPine BESYLATE 5 MG TAB PO SCH (13:24)
[2022-02-14 13:50] VITALS: BP 159/64
[2022-02-14] MEDS: SODIUM CHLOR 0.9% PF (SALINE LOCK) 10ML VIAL/SYR IV SCH ×2 (14:27→21:47)
[2022-02-14 17:01] VITALS: BP 140/54
[2022-02-14 22:00] VITALS: BP 156/68
[2022-02-14] MEDS: DOCUSATE SOD 100 MG CAP PO SCH (22:13)
[2022-02-14] MEDS: PRAVASTATIN SODIUM 20 MG TAB PO SCH (22:14)
[2022-02-14] MEDS: GABAPENTIN 100 MG CAP PO SCH (22:14)
[2022-02-14] MEDS: ALBUTEROL SULF 2.5 MG/0.5ML(0.5%) NEB SOLN NEB PRN (23:06)
[2022-02-15 05:00] VITALS: BP 139/63
[2022-02-15] MEDS: SODIUM CHLOR 0.9% PF (SALINE LOCK) 10ML VIAL/SYR IV SCH ×3 (06:03→22:15)
[2022-02-15] MEDS: ACCU-CHEK COMFORT CURVE STRIP VI SCH ×5 (06:42→22:19)
[2022-02-15] MEDS: InsuLIN REG 1unit/0.01ml Soln (100units/ml) SC SCH ×4 (06:45→22:26)
[2022-02-15 08:01] LABS: Basophils # (auto) 0 10 ^3/uL (0-0.2); Basophils % (auto) 0.1 % (0.0-2.0); Eosinophils # (auto) 0 10 ^3/uL (0-0.8); Hematocrit 34.6 % (36.0-46.0); Hemoglobin 10.8 g/dL (12.2-16.2); Lymphocytes # (auto) 0.7 10 ^3/uL (0.4-5.4); Lymphocytes % (auto) 3.7 % (10.0-50.0); Mean Corpuscular Hgb Conc. 31.1 g/dL (32.0-36.0); Mean Corpuscular Volume 86.6 fL (80.0-100.0); Monocytes # (auto) 0.4 10 ^3/uL (0-1.3); Monocytes % (auto) 2.1 % (0.0-12.0); Neutrophils # (auto) 17.4 10 ^3/uL (1.6-8.6); Neutrophils % (auto) 94.1 % (37.0-80.0); Red Cell Distribution Width 15.6 % (11.8-14.3); White Blood Cell 18.4 10^3/uL (4.4-10.8)
[2022-02-15 08:15] LABS: Albumin 2.9 g/dL (3.4-5.0); Calcium 8.5 mg/dL (8.5-10.1); Potassium 4.7 mmol/L (3.5-5.1)
[2022-02-15 08:18] LABS: BUN/Creatinine Ratio 26.2
[2022-02-15 08:21] LABS: Bilirubin, Total 0.3 mg/dL (0.2-1.0); Total Protein 6.1 g/dL (6.4-8.2)
[2022-02-15 09:00] VITALS: BP 144/69
[2022-02-15] MEDS: LISINOPRIL 20 MG TAB PO SCH (09:30)
[2022-02-15] MEDS: ENOXAPARIN SOD 30 MG/0.3 ML SYRINGE SC SCH (09:31)
[2022-02-15] MEDS: amLODIPine BESYLATE 5 MG TAB PO SCH (09:31)
[2022-02-15] MEDS: PANTOPRAZOLE 40 MG/10 ML VIAL INJ IV SCH (09:31)
[2022-02-15] MEDS: VANCOMYCIN 1GM/250ML 250 ML IV SCH (09:33)
[2022-02-15] MEDS: methylPREDNISolone SOD SUCC 125 MG/2 ML VL IV SCH ×2 (09:40→22:16)
[2022-02-15] MEDS: DOCUSATE SOD 100 MG CAP PO SCH ×2 (10:00→22:15)
[2022-02-15] MEDS: ALBUTEROL SULF 2.5 MG/0.5ML(0.5%) NEB SOLN NEB PRN (11:02)
[2022-02-15 13:00] VITALS: BP 142/67
[2022-02-15] MEDS: HYDROcodone-ACET 5/325MG TAB PO PRN (16:37)
[2022-02-15 17:00] VITALS: BP 152/76
[2022-02-15 20:00] VITALS: BP 152/76
[2022-02-15 22:00] VITALS: BP 136/75
[2022-02-15] MEDS: PRAVASTATIN SODIUM 20 MG TAB PO SCH (22:15)
[2022-02-15] MEDS: GABAPENTIN 100 MG CAP PO SCH (22:16)
[2022-02-16] MEDS: ALBUTEROL SULF 2.5 MG/0.5ML(0.5%) NEB SOLN NEB PRN ×2 (00:54→16:03)
[2022-02-16] MEDS: LACTATED RINGER'S 1,000 ML IV SCH (01:11)
[2022-02-16] MEDS: HYDROcodone-ACET 5/325MG TAB PO PRN ×3 (03:45→19:47)
[2022-02-16] MEDS: SODIUM CHLOR 0.9% PF (SALINE LOCK) 10ML VIAL/SYR IV SCH ×3 (05:26→21:58)
[2022-02-16] MEDS: InsuLIN REG 1unit/0.01ml Soln (100units/ml) SC SCH ×4 (05:46→22:24)
[2022-02-16] MEDS: ACCU-CHEK COMFORT CURVE STRIP VI SCH ×4 (05:50→21:58)
[2022-02-16 06:03] LABS: Basophils # (auto) 0 10 ^3/uL (0-0.2); Eosinophils # (auto) 0 10 ^3/uL (0-0.8); Hematocrit 32.6 % (36.0-46.0); Hemoglobin 10.4 g/dL (12.2-16.2); Lymphocytes # (auto) 0.6 10 ^3/uL (0.4-5.4); Lymphocytes % (auto) 3.8 % (10.0-50.0); Mean Corpuscular Hemoglobin 27.5 pg (28.0-32.0); Mean Corpuscular Hgb Conc. 31.8 g/dL (32.0-36.0); Mean Corpuscular Volume 86.4 fL (80.0-100.0); Monocytes # (auto) 0.5 10 ^3/uL (0-1.3); Neutrophils % (auto) 93.2 % (37.0-80.0); Red Blood Cells 3.77 10^6/uL (4.0-5.20); Red Cell Distribution Width 15.7 % (11.8-14.3); White Blood Cell 16.1 10^3/uL (4.4-10.8)
[2022-02-16 08:30] VITALS: BP 170/64
[2022-02-16 09:30] LABS: Anion Gap 10 (5-15); Blood Urea Nitrogen 52 mg/dL (7-18); Calcium 8.3 mg/dL (8.5-10.1); Carbon Dioxide 18 mmol/L (21-32); Chloride 112 mmol/L (98-107); GFR African American 29 mL/min; GFR Non-African American 24 mL/min; Glucose 160 mg/dL (74-106); Potassium 4.4 mmol/L (3.5-5.1); Sodium 140 mmol/L (136-145)
[2022-02-16] MEDS: SODIUM BICARBONATE 50ML VIAL 50 ML in SOD CHL 0.45% 1,000 ML IV SCH ×2 (10:00→21:57)
[2022-02-16] MEDS: levoFLOXacin 250MG 50 ML IV SCH (10:32)
[2022-02-16] MEDS: DOCUSATE SOD 100 MG CAP PO SCH ×2 (10:32→22:04)
[2022-02-16] MEDS: PANTOPRAZOLE 40 MG/10 ML VIAL INJ IV SCH (10:32)
[2022-02-16] MEDS: methylPREDNISolone SOD SUCC 125 MG/2 ML VL IV SCH ×2 (10:32→22:03)
[2022-02-16] MEDS: ENOXAPARIN SOD 30 MG/0.3 ML SYRINGE SC SCH (10:33)
[2022-02-16] MEDS: amLODIPine BESYLATE 5 MG TAB PO SCH (10:37)
[2022-02-16] MEDS: LISINOPRIL 20 MG TAB PO SCH (10:37)
[2022-02-16 12:30] VITALS: BP 129/59
[2022-02-16 14:36] LABS: Protein, Urine 33.6 mg/dL (0.0-11.9)
[2022-02-16 16:18] VITALS: BP 115/64
[2022-02-16 22:00] VITALS: BP 145/55
[2022-02-16] MEDS: GABAPENTIN 100 MG CAP PO SCH (22:03)
[2022-02-16] MEDS: PRAVASTATIN SODIUM 20 MG TAB PO SCH (22:04)
[2022-02-16] MEDS ORDERED: KETOROLAC TROMETH 30 MG/ML 1ML VIAL IV ONE (23:00)
[2022-02-17] MEDS: ALBUTEROL SULF 2.5 MG/0.5ML(0.5%) NEB SOLN NEB SCH ×4 (00:13→19:18)
[2022-02-17] MEDS: HYDROcodone-ACET 5/325MG TAB PO PRN ×3 (01:10→20:01)
[2022-02-17 05:00] VITALS: BP 137/62
[2022-02-17 05:16] LABS: Basophils # (auto) 0 10 ^3/uL (0-0.2); Eosinophils # (auto) 0 10 ^3/uL (0-0.8); Hematocrit 33.3 % (36.0-46.0); Hemoglobin 10.8 g/dL (12.2-16.2); Lymphocytes # (auto) 0.5 10 ^3/uL (0.4-5.4); Lymphocytes % (auto) 4.8 % (10.0-50.0); Mean Corpuscular Hemoglobin 27.9 pg (28.0-32.0); Mean Corpuscular Hgb Conc. 32.4 g/dL (32.0-36.0); Mean Corpuscular Volume 86.3 fL (80.0-100.0); Monocytes # (auto) 0.2 10 ^3/uL (0-1.3); Monocytes % (auto) 1.9 % (0.0-12.0); Neutrophils # (auto) 9.9 10 ^3/uL (1.6-8.6); Neutrophils % (auto) 93.3 % (37.0-80.0); Red Blood Cells 3.86 10^6/uL (4.0-5.20); Red Cell Distribution Width 15.3 % (11.8-14.3); White Blood Cell 10.6 10^3/uL (4.4-10.8)
[2022-02-17 05:38] LABS: Calcium 8.1 mg/dL (8.5-10.1); Potassium 4.4 mmol/L (3.5-5.1)
[2022-02-17 05:40] LABS: BUN/Creatinine Ratio 29.2
[2022-02-17] MEDS: SODIUM CHLOR 0.9% PF (SALINE LOCK) 10ML VIAL/SYR IV SCH ×3 (05:59→21:57)
[2022-02-17] MEDS: SODIUM BICARBONATE 50ML VIAL 50 ML in SOD CHL 0.45% 1,000 ML IV SCH ×2 (06:11→17:30)
[2022-02-17] MEDS: ACCU-CHEK COMFORT CURVE STRIP VI SCH ×4 (06:41→21:45)
[2022-02-17] MEDS: InsuLIN REG 1unit/0.01ml Soln (100units/ml) SC SCH ×4 (06:42→21:50)
[2022-02-17 09:12] VITALS: BP 149/73
[2022-02-17] MEDS: ENOXAPARIN SOD 30 MG/0.3 ML SYRINGE SC SCH (10:48)
[2022-02-17] MEDS: methylPREDNISolone SOD SUCC 125 MG/2 ML VL IV SCH (10:49)
[2022-02-17] MEDS: LISINOPRIL 20 MG TAB PO SCH (10:49)
[2022-02-17] MEDS: DOCUSATE SOD 100 MG CAP PO SCH ×2 (10:49→21:53)
[2022-02-17] MEDS: amLODIPine BESYLATE 5 MG TAB PO SCH (10:50)
[2022-02-17] MEDS: methylPREDNISolone SOD SUCC 40 MG/ML VL IV SCH ×2 (11:16→21:53)
[2022-02-17] MEDS ORDERED: ERGOCALCIFEROL 50,000 UNIT(1.25MG) CAP PO SCH (12:15)
[2022-02-17 13:21] VITALS: BP 160/86
[2022-02-17 13:23] VITALS: BP 132/60
[2022-02-17 17:15] VITALS: BP 160/69
[2022-02-17] MEDS: levoFLOXacin 250MG 50 ML IV SCH (19:30)
[2022-02-17] MEDS: PRAVASTATIN SODIUM 20 MG TAB PO SCH (21:52)
[2022-02-17] MEDS: GABAPENTIN 100 MG CAP PO SCH (21:52)
[2022-02-17 22:00] VITALS: BP 155/59
[2022-02-18] MEDS: ALBUTEROL SULF 2.5 MG/0.5ML(0.5%) NEB SOLN NEB SCH ×3 (00:35→11:10)
[2022-02-18] MEDS: HYDROcodone-ACET 5/325MG TAB PO PRN (04:47)
[2022-02-18 05:00] VITALS: BP 156/76
[2022-02-18] MEDS: SODIUM CHLOR 0.9% PF (SALINE LOCK) 10ML VIAL/SYR IV SCH (06:27)
[2022-02-18] MEDS: ACCU-CHEK COMFORT CURVE STRIP VI SCH ×2 (06:41→11:30)
[2022-02-18] MEDS: InsuLIN REG 1unit/0.01ml Soln (100units/ml) SC SCH ×2 (06:42→11:30)
[2022-02-18 09:00] VITALS: BP 122/50
[2022-02-18] MEDS: methylPREDNISolone SOD SUCC 40 MG/ML VL IV SCH ×2 (10:00→10:15)
[2022-02-18] MEDS: levoFLOXacin 250MG 50 ML IV SCH (10:00)
[2022-02-18] MEDS: ENOXAPARIN SOD 30 MG/0.3 ML SYRINGE SC SCH ×2 (10:00→10:15)
[2022-02-18] MEDS: LISINOPRIL 20 MG TAB PO SCH (10:14)
[2022-02-18] MEDS: amLODIPine BESYLATE 5 MG TAB PO SCH (10:15)
[2022-02-18] MEDS: DOCUSATE SOD 100 MG CAP PO SCH (10:16)
[2022-02-18 12:05] VITALS: BP 122/50
== END 2022-02-18 12:59 | DRG 521 ==
LOC: EDBD 13:17 → ER 13:17 → EDUNIT# 13:17 → OVERFLOW 15:23 → EAST 23:42 → TELE-EAST 02-13 02:42
PROVIDERS: ADMIT Nurse Practitioner Family; ATTEND Internal Medicine Geriatric Medicine
PROC: 0SRS0JZ Replacement of Left Hip Joint, Femoral Surface with Synthetic Substitute, Open Approach (ICD-10-PCS; principal; 2022-02-14 07:57)
DX: S72.012A Unspecified intracapsular fracture of left femur, initial encounter for closed fracture (principal); J96.21 Acute and chronic respiratory failure with hypoxia; N17.0 Acute kidney failure with tubular necrosis; E87.20 Acidosis, unspecified; J98.11 Atelectasis; D63.1 Anemia in chronic kidney disease; E11.22 Type 2 diabetes mellitus with diabetic chronic kidney disease; E11.65 Type 2 diabetes mellitus with hyperglycemia; E83.51 Hypocalcemia; N18.32 Chronic kidney disease, stage 3b; I12.9 Hypertensive chronic kidney disease with stage 1 through stage 4 chronic kidney disease, or unspecified chronic kidney disease; J44.9 Chronic obstructive pulmonary disease, unspecified; Y93.89 Activity, other specified; Z20.822 Contact with and (suspected) exposure to COVID-19; W18.39XA Other fall on same level, initial encounter; M79.18 Myalgia, other site; R74.01 Elevation of levels of liver transaminase levels; I27.20 Pulmonary hypertension, unspecified; Z82.5 Family history of asthma and other chronic lower respiratory diseases; Z88.0 Allergy status to penicillin; Z88.2 Allergy status to sulfonamides; Z88.8 Allergy status to other drugs, medicaments and biological substances; Z83.3 Family history of diabetes mellitus; Z90.710 Acquired absence of both cervix and uterus; Z99.81 Dependence on supplemental oxygen; Y92.098 Other place in other non-institutional residence as the place of occurrence of the external cause; Y99.8 Other external cause status; Z79.84 Long term (current) use of oral hypoglycemic drugs
CPT/HCPCS: 36415; 70450; 71045; 72170; 72192; 76775; 80048; 80053; 80061; 81001; 82306; 82570; 82962; 83036; 83735; 83880; 83970; 84100; 84156; 84300; 84443; 84484; 85007; 85025; 85027; 85610; 86850; 86900; 86901; 87426; 93005; 93306; 94640; 96361; 96374; 97110; 97116; 97162; 97530; C9113; G0378; J0690; J1100; J1815; J1885; J1956; J2001; J2405; J2704; J3490

== ENCOUNTER 2022-10-18 10:23 | Emergency (ER) | payer OTHER ==
[~2022-10-18] VITALS: Ht 162.6 cm; Wt 63.0 kg
[~2022-10-18 10:23] MED LIST changes: +ALBU0.084 NEB; +ALBUAER3 IN; +ALLO100T PO; +BUDE0.5S IN; +CYAN-17 PO; +DILT60TA PO; +GABA-1308 PO; -GABA100C9 PO; +GLIP10TA9 PO; +GLIP5TAB12 PO; +HYDR-4296 PO; +IPRA0.03; +ISOSPOW2 XX; -LISI20TA28 PO; +LISI20TA56 PO; +LOVA20TA4 PO; +MULT-195 OR; +SIMV10TA20 PO; -SIMV10TA84 PO; +TRAZ-228 PO; -TRAZ100T3 PO
[2022-10-18] MEDS ORDERED: LIDOCAINE 1% (LOCAL ANESTH.) PF 5ml SDV ID ONE (12:00)
[2022-10-18] MEDS ORDERED: LIDOCAINE 1% HCL (LOCAL ANESTH.) INJ 20ML MDV ID ONE (13:30)
[2022-10-18 13:38] VITALS: BP 162/90; PULSE 101; RESP 21; O2SAT 97
== END 2022-10-18 16:35 | disposition home or self-care (01) ==
LOC: EDBD 10:23 → ER 10:23
DX: S01.81XA Laceration without foreign body of other part of head, initial encounter (principal); S51.812A Laceration without foreign body of left forearm, initial encounter; M19.90 Unspecified osteoarthritis, unspecified site; J45.909 Unspecified asthma, uncomplicated; I10 Essential (primary) hypertension; E11.9 Type 2 diabetes mellitus without complications; Z90.710 Acquired absence of both cervix and uterus; Z98.890 Other specified postprocedural states; Z88.0 Allergy status to penicillin; Z88.2 Allergy status to sulfonamides; Z88.8 Allergy status to other drugs, medicaments and biological substances; Z79.82 Long term (current) use of aspirin; Z79.1 Long term (current) use of non-steroidal anti-inflammatories (NSAID); Z79.899 Other long term (current) drug therapy; Z91.81 History of falling; W01.0XXA Fall on same level from slipping, tripping and stumbling without subsequent striking against object, initial encounter; Y93.89 Activity, other specified; Y92.89 Other specified places as the place of occurrence of the external cause; Y99.8 Other external cause status
CPT/HCPCS: 12013; 70450; 72125; 73090; 82962; 93005; 99284; J2001